=== PATIENT | female | born 1950 | race Caucasian/White ===

== ENCOUNTER 2021-08-01 18:51 | Emergency (ER) | payer OTHER ==
[2021-08-01 18:59] VITALS: BP 129/90
--- NOTE | 2021-08-01 19:12 | ED Physician Documentation ---
History of Present Illness - Stated complaint Stated Complaint: FEMALE - Chief complaint Chief Complaint: UTI - History obtained from History obtained from: Patient - Additonal information Additional information: Frequency and dysuria starting today. No flank pain or fevers. No history of UTIs. She is otherwise healthy other than hypercholesterolemia. Review of Systems Constitutional: denies: Fever, Chills GI: denies: Abdominal Pain, Nausea, Diarrhea : reports: Dysuria, Frequency. denies: Hematuria PD PAST MEDICAL HISTORY - Past Medical History Past Medical History: No - Present Medications Home Medications: Ambulatory Orders Medication Instructions Recorded Confirmed Sulfamethox/Trimeth 800/160 1 each PO BID #10 tablet 08/01/21 [Bactrim Ds 800/160] - Allergies Allergies/Adverse Reactions: Allergies Allergy/AdvReac Type Severity Reaction Status Date / Time ciprofloxacin Allergy Anaphylaxis Verified 08/01/21 18:56 miocamycin Allergy Anaphylaxis Verified 08/01/21 18:56 Penicillins Allergy Anaphylaxis Verified 08/01/21 18:56 - Social History Does the pt smoke?: No Smoking Status: Never smoker PD ED PE NORMAL - Vitals Vital signs reviewed: Yes - General General: Alert and oriented X 3, No acute distress - Abdomen Abdomen: Soft, Non tender - Back Back: No CVA TTP - Derm Derm: No rash - Neuro Neuro: Alert and oriented X 3, Normal speech Results - Vitals Vitals: Vital Signs - 24 hr 08/01/21 18:56 Temperature 36.5 C Heart Rate 90 Respiratory 16 Rate Blood Pressure 129/90 H O2 Saturation 96 Oxygen O2 Source Room air - Labs Labs: Laboratory Tests 08/01/21 19:03 Urine Color DK. ORANGE Urine Clarity CLEAR Urine pH Ur Specific Pound Urine Protein Urine Glucose (UA) Urine Ketones Urine Occult Blood Urine Nitrite Urine Bilirubin NEGATIVE Urine Urobilinogen Ur Leukocyte Esterase Urine RBC 6-10 H Urine WBC 11-25 H Ur Squamous Epith Cells FEW Squamous Urine Bacteria Few Urine Casts 6-10 Hyaline Casts Urine Mucus Marked Strands Ur Microscopic Review INDICATED Urine Culture Comments INDICATED PD MEDICAL DECISION MAKING - ED course ED course: Urinalysis unreliable because of interference from taking Azo. That said her symptoms are very typical of cystitis and she was treated with Bactrim pending culture. Departure - Departure Disposition: Home, Self Care Clinical Impression: Cystitis Condition: Good Record reviewed to determine appropriate education?: Yes Instructions: ED UTI Cystitis Female Prescriptions: Sulfamethox/Trimeth 800/160 [Bactrim Ds 800/160] 1 each PO BID #10 tablet Comments: We will culture your urine, the results should be done in 48-72 hours. If an a ntibiotic change is necessary we will call you. Return if worse in the meantime, especially if you develop increasing flank pain, fevers, or cannot keep down the medication.
[2021-08-01 19:27] LABS: ICTOTEST,URINE NEGATIVE
[2021-08-01 19:28] LABS: BILIRUBIN,URINE NEGATIVE (NEGATIVE); CLARITY,URINE CLEAR (CLEAR)
[2021-08-01 19:29] LABS: BACTERIA,URINE Few /HPF (None Seen); CASTS, URINE 6-10 Hyaline Casts /LPF; MUCUS,URINE Marked Strands; SQUAMOUS EPITHELIAL CELL,UR FEW Squamous (<= Few)
[2021-08-01] MEDS ORDERED: SULFAMETH/TRIMETH DS 800/160 MG TABLET PO STA (19:32)
== END 2021-08-01 19:40 | disposition home or self-care (01) ==
LOC: ED 18:51
DX: N30.90 Cystitis, unspecified without hematuria (principal)
CPT/HCPCS: 81001; 87086; 99283; A9270; 81003